=== PATIENT | female | born 1935 | race Caucasian/White ===

== ENCOUNTER 2021-01-05 05:57 | Observation (INO) | payer MEDICARE, BC ==
[2021-01-04 12:13] VITALS: BMI 24.6
[2021-01-05] MEDS ORDERED: Thrombin 5000 UNITS/5 ML VIAL ONE (06:25)
[2021-01-05] MEDS ORDERED: Fentanyl 100 MCG/2 ML VIAL ONE ×4 (06:54→12:34)
[2021-01-05] MEDS ORDERED: Morphine 2 MG/ML VIAL SLOW IVP PRN (07:44)
[2021-01-05] MEDS ORDERED: Acetaminophen/Codeine 30-300mg Tablet PO PRN (07:44)
[2021-01-05] MEDS ORDERED: Acetaminophen 325 MG TAB PO PRN (07:44)
[2021-01-05] MEDS ORDERED: tiZANidine HCl 4 MG TAB PO PRN (07:44)
[2021-01-05] MEDS ORDERED: Rocuronium Bromide 10 MG/ML (10ML VIAL) ONE (07:59)
[2021-01-05] MEDS ORDERED: Glycopyrrolate 0.2 MG/ML 5 ML SYRINGE ONE (07:59)
[2021-01-05] MEDS ORDERED: Labetalol HCl 100 MG/20 ML VIAL ONE (07:59)
[2021-01-05] MEDS ORDERED: ePHEDrine 50 MG/ML VIAL ONE (07:59)
[2021-01-05] MEDS ORDERED: Lidocaine 1% PF 5 ML VIAL ONE (07:59)
[2021-01-05] MEDS ORDERED: PROPOFOL 200 MG/20 ML VIAL ONE (07:59)
[2021-01-05] MEDS ORDERED: PHENYLEPHRINE-NS 100 MCG/ML 10 ML SYRINGE ONE (07:59)
[2021-01-05] MEDS ORDERED: Ondansetron PF 4 MG/2 ML Vial ONE (07:59)
[2021-01-05] MEDS ORDERED: Dexamethasone 20 MG/5 ML VIAL ONE (07:59)
[2021-01-05] MEDS ORDERED: Non-Formulary Item 1 EACH (Vitamin B Complex [Vitamin B Complex] 1 EACH Tablet) IM SCH (08:00)
[2021-01-05] MEDS ORDERED: VIT A PO SCH (09:00)
[2021-01-05] MEDS ORDERED: ZINC PO SCH (09:00)
[2021-01-05] MEDS ORDERED: VIT C PO SCH (09:00)
[2021-01-05] MEDS ORDERED: CHLORPHENIRAMINE MALEATE 4 MG PO SCH (09:00)
[2021-01-05] MEDS ORDERED: [UNRECOGNIZED DRUG - OTHER] PO SCH (09:00)
[2021-01-05] MEDS ORDERED: COPPER PO SCH (09:00)
[2021-01-05] MEDS ORDERED: VIT E PO SCH (09:00)
[2021-01-05] MEDS ORDERED: HYDROmorphone 2 MG/ML VIAL ONE (10:27)
[2021-01-05] MEDS ORDERED: Ondansetron HCl/PF 4 MG/2 ML Vial IVP PRN (11:02)
[2021-01-05] MEDS ORDERED: Promethazine HCl 25 MG/ML VIAL IM PRN (11:02)
[2021-01-05] MEDS ORDERED: Promethazine HCl 25 MG/ML VIAL IVPB PRN (11:02)
[2021-01-05] MEDS: Sodium Chloride 0.9% 1,000 ML IV SCH ×2 (14:46→23:02)
[2021-01-05] MEDS: Calcium Carbonate 600 MG + Vit D TAB PO SCH (15:00)
[2021-01-05] MEDS: Cholecalciferol 1,000 UNITS (25 MCG) TAB PO SCH (15:00)
[2021-01-05] MEDS: Ascorbic Acid 500 mg Chewable Tablet PO SCH (15:00)
[2021-01-05] MEDS: Lactinex Tablet PO SCH (15:01)
[2021-01-05] MEDS: Escitalopram Oxalate 10 mg Tablet PO SCH (15:01)
[2021-01-05] MEDS: Metoprolol Tartrate 25 MG TAB PO SCH ×2 (15:01→20:17)
[2021-01-05] MEDS: Vit A,C & E/Lutein/Minerals Tablet PO SCH (15:01)
[2021-01-05] MEDS: Naproxen 500 MG TAB PO SCH (15:01)
[2021-01-05] MEDS: CEFAZOLIN 2 GM in Premix Bag 1 BAG IVPB SCH ×2 (15:23→21:33)
[2021-01-05] MEDS: traMADol HCl 50 MG TAB PO PRN (15:30)
[2021-01-05] MEDS: HYDROcodone/Acetaminophen 7.5/325 mg Tablet PO PRN (20:17)
[2021-01-05] MEDS ORDERED: Non-Formulary Item 1 EACH (Ramelteon [Ramelteon] 8 MG Tablet) PO SCH (21:00)
[2021-01-05] MEDS ORDERED: Ibuprofen 200 MG TAB PO PRN (21:49)
[2021-01-06] MEDS: traMADol HCl 50 MG TAB PO PRN (01:09)
[2021-01-06] MEDS: HYDROcodone/Acetaminophen 7.5/325 mg Tablet PO PRN ×2 (03:14→09:43)
[2021-01-06] MEDS ORDERED: Levothyroxine Sodium 25 MCG TAB PO SCH (06:00)
[2021-01-06] MEDS ORDERED: hydrALAZINE 20 MG/ML VIAL SLOW IVP PRN (07:58)
[2021-01-06] MEDS: Naproxen 500 MG TAB PO SCH (09:13)
[2021-01-06] MEDS: Vit A,C & E/Lutein/Minerals Tablet PO SCH (09:13)
[2021-01-06] MEDS: Calcium Carbonate 600 MG + Vit D TAB PO SCH (09:14)
[2021-01-06] MEDS: Ascorbic Acid 500 mg Chewable Tablet PO SCH (09:14)
[2021-01-06] MEDS: Cholecalciferol 1,000 UNITS (25 MCG) TAB PO SCH (09:15)
[2021-01-06] MEDS: Metoprolol Tartrate 25 MG TAB PO SCH (09:15)
[2021-01-06] MEDS: Lactinex Tablet PO SCH (09:15)
[2021-01-06] MEDS: Escitalopram Oxalate 10 mg Tablet PO SCH (09:15)
[2021-01-06] MEDS: Sodium Chloride 0.9% 1,000 ML IV SCH (11:36)
[2021-01-06 15:19] VITALS: BP 118/69; TEMP 98.4
== END 2021-01-06 19:50 ==
LOC: SDC 05:57 → SURG B 14:41
PROVIDERS: ADMIT Surgery; ATTEND Surgery
PROC: 01NB0ZZ Release Lumbar Nerve, Open Approach (ICD-10-PCS; principal; 2021-01-05)
DX: M48.062 Spinal stenosis, lumbar region with neurogenic claudication (principal); Z79.1 Long term (current) use of non-steroidal anti-inflammatories (NSAID); Z79.899 Other long term (current) drug therapy; Z91.048 Other nonmedicinal substance allergy status; Z98.890 Other specified postprocedural states
CPT/HCPCS: 72100; 76000; 93970; 96374; 96376; G0378; J0690; J1100; J1170; J2405; J2704; J3010; J3370; J3490

== ENCOUNTER 2021-03-23 08:52 | Outpatient (CLI) | payer MEDICARE, BC | END 2021-03-23 08:53 | disposition home or self-care (01) | LOC: NM 08:52 | PROVIDERS: ATTEND Psychiatry & Neurology Neurology | DX: G20 Parkinson's disease (principal) | CPT/HCPCS: 78803; A9584 ==

== ENCOUNTER 2021-07-05 07:39 | Observation (INO) | payer MEDICARE, BC ==
[2021-07-05 08:20] LABS: #Eosinphils 0.3 thou/uL (0.0-0.7); #Lymphocytes 1.6 thou/uL (1.20-3.40); #Monocytes 0.8 thou/uL (0.11-0.59); %Basophils 0.3 % (0.0-1.0); %Eosinophils 3.3 % (0.0-10.0); %Lymphocytes 20.9 % (21.0-51.0); %Monocytes 10.4 % (0.0-10.0); Mean Corpuscular HGB CONC 33.2 g/dL (32.0-36.0); Mean Corpuscular Hemoglobin 33.6 pg (27.0-31.0); Mean Platelet Volume 7.5 fL (7.4-10.4); Platelet Count 219 thou/uL (130-400); RBC Distribution Width 13.4 % (11.5-14.5); Red Blood Cell (RBC) Count 3.56 mill/uL (4.20-5.40); White Blood Cell (WBC) Count 7.8 thou/uL (4.8-10.8)
[2021-07-05 08:37] LABS: ALT (SGPT) 28 U/L (8-55); AST (SGOT) 23 U/L (5-34); Albumin 3.8 g/dL (3.4-4.8); Alkaline Phosphatase 94 U/L (40-110); Anion Gap 12 mmol/L (10-20); BUN (Urea Nitrogen) 16 mg/dL (9.8-20.1); Bilirubin, Total 0.6 mg/dL (0.2-1.2); Calc. Creatinine Clearance 0 mL/min (70-130); Calcium 8.8 mg/dL (7.8-10.44); Carbon Dioxide 28 mmol/L (23-31); Chloride 96 mmol/L (98-107); Globulin 3.4 g/dL (2.4-3.5); Glucose 112 mg/dL (83-110); Lipase 6 U/L (8-78); Potassium 3.4 mmol/L (3.5-5.1); Protein, Total 7.2 g/dL (5.8-8.1); Sodium 133 mmol/L (136-145)
[2021-07-05] MEDS ORDERED: Nitroglycerin 2% Ointment 1 INCH/1 GM Packet ONE ×2 (08:49→17:49)
[2021-07-05] MEDS ORDERED: Aspirin Chewable 81 MG TAB ONE (08:49)
[2021-07-05 08:59] LABS: CKMB 1.5 ng/mL (0-6.6)
[2021-07-05] MEDS ORDERED: Iopamidol 370 76% 100 ML VIAL ONE (11:35)
[2021-07-05 12:54] LABS: Troponin I 0.066 ng/mL (< 0.028)
[2021-07-05] MEDS ORDERED: Acetaminophen 325 MG TAB PO PRN (13:17)
[2021-07-05 13:18] LABS: SARS-CoV-2 PCR by NAA Not Detected (NotDetected)
[2021-07-05] MEDS ORDERED: Nitroglycerin 0.4 MG TAB (25 Tab Bottle) SL PRN ×2 (13:19→16:22)
[2021-07-05] MEDS ORDERED: Electrolyte Replacement Protocol 1 EACH FS SCH (13:30)
[2021-07-05] MEDS ORDERED: Potassium Chloride 20 MEQ TAB PO SCH (13:30)
[2021-07-05] MEDS ORDERED: Electrolyte Replacement Protocol FS PRN (13:30)
[2021-07-05] MEDS ORDERED: Heparin 10,000 UNITS/ 10 ML VIAL SLOW IVP SCH (13:45)
[2021-07-05] MEDS ORDERED: Heparin 10,000 UNITS/ 10 ML VIAL ONE (14:34)
[2021-07-05] MEDS ORDERED: Fentanyl 100 MCG/2 ML VIAL ONE (15:17)
[2021-07-05 15:51] LABS: Troponin I 0.067 ng/mL (< 0.028)
[2021-07-05] MEDS ORDERED: Metoprolol Tartrate 5 MG/5 ML VIAL ONE (15:55)
[2021-07-05] MEDS ORDERED: Enalaprilat Dihydrate 1.25 MG/ML VIAL ONE (15:57)
[2021-07-05] MEDS ORDERED: Sodium Chloride 0.9% 200 ML IV PRN (16:22)
[2021-07-05] MEDS ORDERED: Furosemide 20 MG/2 ML VIAL SLOW IVP SCH (16:30)
[2021-07-05] MEDS ORDERED: Carvedilol 3.125 MG TAB PO SCH (17:00)
[2021-07-05 17:14] VITALS: BMI 23.8
[2021-07-05] MEDS: Nitroglycerin 2% Ointment 1 INCH/1 GM Packet TOP SCH ×2 (17:54→22:00)
[2021-07-05] MEDS: TICAGRELOR 90 MG TABLET PO SCH (20:15)
[2021-07-05] MEDS ORDERED: Atorvastatin Calcium 40 MG TAB PO SCH (21:00)
[2021-07-05] MEDS ORDERED: Lisinopril 5 MG TAB PO SCH (21:00)
[2021-07-06 05:25] LABS: #Eosinphils 0.1 thou/uL (0.0-0.7); #Lymphocytes 1.8 thou/uL (1.20-3.40); #Monocytes 0.8 thou/uL (0.11-0.59); #Neutrophils 3.7 thou/uL (1.40-6.50); %Basophils 0.1 % (0.0-1.0); %Eosinophils 1.8 % (0.0-10.0); %Lymphocytes 27.8 % (21.0-51.0); %Monocytes 12.2 % (0.0-10.0); Hemoglobin 11.5 g/dL (12.0-16.0); Mean Corpuscular HGB CONC 33.5 g/dL (32.0-36.0); Mean Corpuscular Hemoglobin 33.7 pg (27.0-31.0); Mean Platelet Volume 7.2 fL (7.4-10.4); Platelet Count 206 thou/uL (130-400); RBC Distribution Width 13.4 % (11.5-14.5); Red Blood Cell (RBC) Count 3.42 mill/uL (4.20-5.40); White Blood Cell (WBC) Count 6.4 thou/uL (4.8-10.8)
[2021-07-06 05:47] LABS: Anion Gap 13 mmol/L (10-20); BUN (Urea Nitrogen) 15 mg/dL (9.8-20.1); Calc. Creatinine Clearance 39 mL/min (70-130); Carbon Dioxide 24 mmol/L (23-31); Chloride 103 mmol/L (98-107); Glucose 106 mg/dL (83-110); Potassium 3.8 mmol/L (3.5-5.1); Sodium 136 mmol/L (136-145)
[2021-07-06] MEDS: Nitroglycerin 2% Ointment 1 INCH/1 GM Packet TOP SCH (05:58)
[2021-07-06 06:16] LABS: Cardiac Risk 2.5 (Less than 4.5)
[2021-07-06] MEDS ORDERED: Carvedilol 6.25 MG TAB PO SCH (08:00)
[2021-07-06] MEDS ORDERED: Carvedilol 3.125 MG TAB PO SCH (08:00)
[2021-07-06] MEDS ORDERED: Lisinopril 5 MG TAB PO SCH (08:00)
[2021-07-06] MEDS ORDERED: Aspirin 81 mg Enteric Coated Tablet PO SCH (09:00)
[2021-07-06] MEDS ORDERED: Aspirin Chewable 81 MG TAB PO SCH (09:00)
[2021-07-06] MEDS ORDERED: Lisinopril 10 MG TAB PO SCH (09:00)
[2021-07-06] MEDS ORDERED: Furosemide 40 MG TAB PO SCH (09:30)
[2021-07-06] MEDS ORDERED: Potassium Chloride 20 MEQ TAB PO SCH (09:30)
[2021-07-06] MEDS: TICAGRELOR 90 MG TABLET PO SCH (09:47)
[2021-07-06 12:03] VITALS: TEMP 98
[2021-07-06 17:01] VITALS: BP 125/65
[2021-07-07] MEDS ORDERED: Furosemide 40 MG TAB PO SCH (07:30)
== END 2021-07-06 16:20 | disposition home or self-care (01) ==
LOC: ERS 07:39 → ERHOLD 10:36 → SURG A 14:54 → 2NO 16:39
PROVIDERS: ADMIT Internal Medicine; ATTEND Internal Medicine
PROC: 4A023N7 Measurement of Cardiac Sampling and Pressure, Left Heart, Percutaneous Approach (ICD-10-PCS; principal; 2021-07-05)
DX: R07.89 Other chest pain (principal); I44.4 Left anterior fascicular block; I25.10 Atherosclerotic heart disease of native coronary artery without angina pectoris; I25.84 Coronary atherosclerosis due to calcified coronary lesion; I10 Essential (primary) hypertension; E78.5 Hyperlipidemia, unspecified; E03.9 Hypothyroidism, unspecified; Z20.822 Contact with and (suspected) exposure to COVID-19; I25.2 Old myocardial infarction; E87.1 Hypo-osmolality and hyponatremia; E87.6 Hypokalemia; Z79.02 Long term (current) use of antithrombotics/antiplatelets; Z79.82 Long term (current) use of aspirin; Z79.890 Hormone replacement therapy; Z79.899 Other long term (current) drug therapy; Z91.018 Allergy to other foods; Z91.048 Other nonmedicinal substance allergy status; Z95.5 Presence of coronary angioplasty implant and graft
CPT/HCPCS: 71045; 80048; 80053; 80061; 82553; 83690; 84484 ×2; 85025 ×2; 93005; 93458; 94760; 96374; 97139 ×2; 97530; 99285; G0378 ×3; U0003; U0005; 36415; J1644; J1940; J3010; Q9967